=== PATIENT | male | born 1995 | race Caucasian/White ===

== ENCOUNTER 2023-05-16 19:46 | Emergency (ER) | payer OTHER ==
[~2023-05-16] VITALS: Ht 170.2 cm; Wt 65.8 kg
[2023-05-16 20:09] VITALS: BP 120/75
[2023-05-16] MEDS ORDERED: ONDA4 PO (22:48)
== END 2023-05-16 23:02 | disposition home or self-care (01) ==
LOC: ER 19:46
DX: S43.152A Posterior dislocation of left acromioclavicular joint, initial encounter (principal); V39.9XXA Occupant (driver) (passenger) of three-wheeled motor vehicle injured in unspecified traffic accident, initial encounter
CPT/HCPCS: 73030; 99283-25; A9270